=== PATIENT | female | born 1990 | race Caucasian/White ===

== ENCOUNTER 2020-05-14 06:07 | Inpatient (IN) ==
[2020-05-14] MEDS ORDERED: TRANEXAMIC ACID 1,000 MG/10 ML VIAL ONE (06:17)
[2020-05-14] MEDS ORDERED: miSOPROStoL 200 MCG TABLET ONE (06:17)
[2020-05-14] MEDS ORDERED: CARBOPROST TROMETHAMINE 250 MCG/ML AMP IM ONE (06:18)
[2020-05-14] MEDS ORDERED: METHYLERGONOVINE 0.2 MG/1 ML AMP ONE (06:18)
[2020-05-14] MEDS ORDERED: OXYTOCIN/LR 20 UNIT/1,000 ML BAG IV ONE ×3 (06:18→07:16)
[2020-05-14] MEDS ORDERED: MEPERIDINE 50 MG/1 ML VIAL ONE (06:19)
[2020-05-14] MEDS ORDERED: LIDOCAINE 1% 50 ML VIAL ONE (06:19)
[2020-05-14] MEDS ORDERED: SODIUM CHLORIDE 0.9% 0 ML IV ONE (06:19)
[2020-05-14] MEDS ORDERED: BUTORPHANOL 1 MG/ML VIAL IV PRN (06:30)
[2020-05-14] MEDS ORDERED: BUTORPHANOL 2 MG/ML VIAL IV PRN (06:30)
[2020-05-14] MEDS ORDERED: OXYTOCIN/LR 20 UNIT/1,000 ML BAG IV PRN (06:30)
[2020-05-14] MEDS ORDERED: ONDANSETRON 4 MG/2 ML VIAL IV PRN ×2 (06:30→07:16)
[2020-05-14] MEDS ORDERED: MEPERIDINE 50 MG/1 ML VIAL IV ONE (06:30)
[2020-05-14] MEDS ORDERED: LACTATED RINGERS 1,000 ML IV SCH (06:30)
[2020-05-14] MEDS ORDERED: MEASLES/MUMPS/RUBELLA VACCINE 0.5 ML VIAL SUBCUT ONE (07:16)
[2020-05-14] MEDS ORDERED: oxyCODONE/ACETAMINOPHEN 5-325 MG TABLET PO PRN ×2 (07:16)
[2020-05-14] MEDS ORDERED: BENZOCAINE 20%/MENTHOL 0.5% SPRAY 56 GM CAN TOP PRN (07:16)
[2020-05-14] MEDS ORDERED: IBUPROFEN 800 MG TABLET PO PRN (07:16)
[2020-05-14] MEDS ORDERED: ACETAMINOPHEN 325 MG TABLET PO PRN (07:16)
[2020-05-14] MEDS ORDERED: RHO(D) IMMUNE GLOBULIN 300 MCG SYRINGE IM ONE (07:16)
[2020-05-14] MEDS ORDERED: HYDROCORTISONE 2.5% RECTAL CREAM 30 GM TUBE TOP PRN (07:16)
[2020-05-14] MEDS ORDERED: LANOLIN 50% CREAM 0.3 OZ TUBE TOP PRN (07:16)
[2020-05-14] MEDS ORDERED: WITCH HAZEL PADS 100/JAR TOP PRN (07:16)
[2020-05-14] MEDS ORDERED: DIPH/TET/ACEL PERT BOOSTER VACCINE 0.5 ML VIAL IM ONE (07:16)
[2020-05-14] MEDS ORDERED: BISACODYL 10 MG SUPP RECTAL PRN (07:16)
[2020-05-14 07:17] LABS: Cord Arterial Blood HCO3 23.1 MMOL/L; Cord Venous Blood HCO3 24.3 MMOL/L; Cord Venous Blood PCO2 41.9 MMHG
[2020-05-14 07:43] LABS: Amorphous Crystals,Urine Occasional /HPF (Few); Bacteria,Urine Occasional /HPF (Few); Bilirubin,Urine Negative (Negative); Blood, Urine Moderate mg/dL (Negative); Glucose,Urine (UA) Negative (Negative); Ketones,Urine Negative (Negative); Nitrite,Urine Negative (Negative); Protein,Urine 30 MG/DL; RBC,Urine 2 /HPF (0-4); Squamous Epithelial Cell,Urine Occasional /HPF (0-10); Urine Appearance CLOUDY (Clear); Urine Color Yellow (Yellow); Urine Specific Gravity 1.008 (1.001-1.035); Urine Urobilinogen < 2.0 EU/DL (0.2-1.0); WBC,Urine 4 /HPF (0-6)
[2020-05-14 08:21] LABS: Basophils % 0.1 % (0.0-0.8); Eosinophils # 0.1 10*3/uL (0.0-0.87); Eosinophils % 0.3 % (0.00-10.9); Hemoglobin 11.3 GM/DL (12.0-16.0); Immature Granulocytes % 1.6 %; Immature Granulocytes Absolute 0.27 #; Lymphocytes # 1.3 10*3/uL (1.4-4.0); Lymphocytes % 7.5 % (21.3-54.2); Mean Corpuscular HGB Conc 33.2 GM/DL (32-36); Mean Corpuscular Volume 88.5 FL (87-102); Mean Platelet Volume 9.2 FL (9.6-12.0); Monocytes % 5.6 % (1.7-12.7); Neutrophils % 84.9 % (38.7-73.9); Platelet Count 337 T/CUMM (130-400); Red Blood Count 3.84 MC/CUMM (3.8-5.5); Red Cell Distribution Width 14.1 % (9.3-17.3); White Blood Count 16.6 T/CUMM (4-12)
[2020-05-14 08:44] LABS: Alanine Aminotransferase 14 U/L (13-56); Albumin 2.2 G/DL (3.4-5.0); Alkaline Phosphatase 109 U/L (45-117); Aspartate Amino Transferase 21 U/L (0-37); Bilirubin,Total < 0.39 MG/DL (0.2-1.0); Blood Urea Nitrogen 10 MG/DL (7-18); Calcium 9.3 MG/DL (8.5-10.1); Carbon Dioxide 24 MMOL/L (21-32); Estimated Glom Filtration Rate 110 ML/MIN; Glucose 113 MG/DL (74-106); Osmolality,Calculated 274.7 MOS/KG (273-304); Potassium 3.9 MMOL/L (3.5-5.1); Sodium 138 MMOL/L (136-145); Total Protein 6.3 G/DL (6.4-8.3)
[2020-05-14 09:23] LABS: Barbiturates Screen,Urine Negative (Negative); Benzodiazepines Screen,Urine Negative (Negative); Cannabinoid Screen,Urine Negative (Negative); Opiate Screen,Urine Negative (Negative); Phencyclidine Screen,Urine Negative (Negative)
[2020-05-14] MEDS: DOCUSATE SODIUM 100 MG CAPSULE PO SCH (21:44)
[2020-05-15 05:47] LABS: Basophils % 0.2 % (0.0-0.8); Eosinophils # 0.2 10*3/uL (0.0-0.87); Eosinophils % 1.4 % (0.00-10.9); Hematocrit 32.4 VOL% (35.7-47.0); Hemoglobin 10.5 GM/DL (12.0-16.0); Immature Granulocytes % 1.1 %; Immature Granulocytes Absolute 0.16 #; Lymphocytes # 2.6 10*3/uL (1.4-4.0); Lymphocytes % 18.5 % (21.3-54.2); Mean Corpuscular HGB Conc 32.4 GM/DL (32-36); Mean Corpuscular Volume 89.8 FL (87-102); Mean Platelet Volume 9.4 FL (9.6-12.0); Monocytes % 7.8 % (1.7-12.7); Platelet Count 304 T/CUMM (130-400); Red Blood Count 3.61 MC/CUMM (3.8-5.5); Red Cell Distribution Width 14.4 % (9.3-17.3)
[2020-05-15] MEDS: DOCUSATE SODIUM 100 MG CAPSULE PO SCH ×2 (08:23→21:30)
[2020-05-16] MEDS: DOCUSATE SODIUM 100 MG CAPSULE PO SCH (08:46)
[2020-05-16 11:31] VITALS: BP 116/77
== END 2020-05-16 12:20 | disposition home or self-care (01) | DRG 807 ==
LOC: N.LDOUT 06:07 → N.LD 06:09 → N.OB 10:34
PROVIDERS: ADMIT Specialist; ATTEND Specialist

== ENCOUNTER 2022-08-08 04:03 | Inpatient (IN) ==
[2022-08-08] MEDS ORDERED: METHYLERGONOVINE 0.2 MG/1 ML AMP IM PRN (04:37)
[2022-08-08] MEDS ORDERED: BUTORPHANOL 2 MG/ML VIAL IV PRN (04:37)
[2022-08-08] MEDS ORDERED: ONDANSETRON 4 MG/2 ML VIAL IV PRN (04:37)
[2022-08-08] MEDS ORDERED: MEPERIDINE 50 MG/1 ML VIAL IV PRN (04:37)
[2022-08-08] MEDS ORDERED: CARBOPROST TROMETHAMINE 250 MCG/ML AMP IM PRN (04:37)
[2022-08-08] MEDS ORDERED: TRANEXAMIC ACID 1,000 MG in SODIUM CHLORIDE 0.9% 100 ML IV PRN (04:37)
[2022-08-08] MEDS ORDERED: OXYTOCIN/LR 20 UNIT/1,000 ML BAG IV ONE ×2 (04:37→10:15)
[2022-08-08] MEDS ORDERED: miSOPROStoL 200 MCG TABLET RECTAL PRN (04:37)
[2022-08-08 04:53] LABS: Bacteria,Urine Occasional /HPF (Few); Bilirubin,Urine Negative (Negative); Blood, Urine Moderate mg/dL (Negative); Glucose,Urine (UA) Negative (Negative); Ketones,Urine Negative (Negative); Mucus,Urine Occasional /LPF (Occasional); Nitrite,Urine Negative (Negative); Protein,Urine Negative (Negative); RBC,Urine 1 /HPF (0-4); Squamous Epithelial Cell,Urine Occasional /HPF (0-10); Urine Appearance Clear (Clear); Urine Color Yellow (Yellow); Urine Specific Gravity 1.015 (1.001-1.035); Urine Urobilinogen 0.2 eU/dL (<2.0)
[2022-08-08] MEDS ORDERED: LACTATED RINGERS 1,000 ML IV SCH (05:00)
[2022-08-08 05:46] LABS: Alanine Aminotransferase 21 U/L (13-56); Albumin 2.6 G/DL (3.4-5.0); Alkaline Phosphatase 104 U/L (45-117); Aspartate Amino Transferase 17 U/L (0-37); Bilirubin,Total < 0.39 MG/DL (0.20-1.00); Blood Urea Nitrogen 12 MG/DL (7-18); Calcium 9.2 MG/DL (8.5-10.1); Carbon Dioxide 20 MMOL/L (21-32); Chloride 106 MMOL/L (98-107); Glucose 102 MG/DL (74-106); Potassium 4.1 MMOL/L (3.5-5.1); Sodium 136 MMOL/L (136-145); Total Protein 7.1 G/DL (6.4-8.2)
[2022-08-08 06:02] LABS: Basophils % 0.2 % (0.0-0.8); Eosinophils # 0.1 10*3/uL (0.0-0.87); Eosinophils % 0.7 % (0.00-10.9); Hematocrit 39.9 VOL% (35.7-47.0); Immature Granulocytes % 1.2 %; Immature Granulocytes Absolute 0.19 #; Lymphocytes # 2.2 10*3/uL (1.4-4.0); Lymphocytes % 13.6 % (21.3-54.2); Mean Corpuscular HGB Conc 32.6 GM/DL (32-36); Mean Corpuscular Volume 94.3 FL (87-102); Mean Platelet Volume 8.9 FL (9.6-12.0); Monocytes # 1.1 10*3/uL (0.11-0.8); Monocytes % 7.1 % (1.7-12.7); Neutrophils % 77.2 % (38.7-73.9); Platelet Count 290 T/CUMM (130-400); Red Blood Count 4.23 MC/CUMM (3.8-5.5); Red Cell Distribution Width 13.8 % (9.3-17.3); White Blood Count 16.08 T/CUMM (4-12)
[2022-08-08 06:15] LABS: Cord Venous Blood HCO3 25.5 MMOL/L; Cord Venous Blood PCO2 41.3 MMHG; Cord Venous Blood PO2 37.1
[2022-08-08] MEDS ORDERED: MEASLES/MUMPS/RUBELLA VACCINE 0.5 ML VIAL SUBCUT ONE (06:27)
[2022-08-08] MEDS ORDERED: BENZOCAINE 20%/MENTHOL 0.5% SPRAY 56 GM CAN TOP PRN (06:27)
[2022-08-08] MEDS ORDERED: HYDROCORTISONE 2.5% RECTAL CREAM 30 GM TUBE TOP PRN (06:27)
[2022-08-08] MEDS ORDERED: RHO(D) IMMUNE GLOBULIN 300 MCG SYRINGE IM ONE (06:27)
[2022-08-08] MEDS ORDERED: LANOLIN 50% CREAM 0.3 OZ TUBE TOP PRN (06:27)
[2022-08-08] MEDS ORDERED: WITCH HAZEL PADS 100/JAR TOP PRN (06:27)
[2022-08-08] MEDS ORDERED: BISACODYL 10 MG SUPP RECTAL PRN (06:27)
[2022-08-08] MEDS ORDERED: DIPH/TET/ACEL PERT BOOSTER VACCINE 0.5 ML VIAL IM ONE (06:27)
[2022-08-08] MEDS ORDERED: oxyCODONE/ACETAMINOPHEN 5-325 MG TABLET PO PRN ×2 (06:27)
[2022-08-08] MEDS ORDERED: ACETAMINOPHEN 325 MG TABLET PO PRN (06:27)
[2022-08-08] MEDS: DOCUSATE SODIUM 100 MG CAPSULE PO SCH ×2 (13:49→21:16)
[2022-08-08] MEDS: KETOROLAC 30 MG/1 ML VIAL IV SCH ×3 (13:49→20:12)
[2022-08-08] MEDS: MULTIVITAMIN (PRENATAL) TABLET PO SCH (13:49)
[2022-08-09 06:15] LABS: Basophils % 0.2 % (0.0-0.8); Eosinophils # 0.2 10*3/uL (0.0-0.87); Eosinophils % 1.7 % (0.00-10.9); Hematocrit 32.4 VOL% (35.7-47.0); Hemoglobin 10.5 GM/DL (12.0-16.0); Immature Granulocytes % 1.1 %; Immature Granulocytes Absolute 0.15 #; Lymphocytes # 2.8 10*3/uL (1.4-4.0); Lymphocytes % 20.2 % (21.3-54.2); Mean Corpuscular HGB Conc 32.4 GM/DL (32-36); Mean Corpuscular Volume 94.2 FL (87-102); Monocytes # 0.9 10*3/uL (0.11-0.8); Monocytes % 6.8 % (1.7-12.7); Platelet Count 238 T/CUMM (130-400); Red Blood Count 3.44 MC/CUMM (3.8-5.5); White Blood Count 13.61 T/CUMM (4-12)
[2022-08-09] MEDS: IBUPROFEN 800 MG TABLET PO SCH ×2 (08:01→14:02)
[2022-08-09] MEDS: DOCUSATE SODIUM 100 MG CAPSULE PO SCH ×2 (09:56→20:33)
[2022-08-09] MEDS: MULTIVITAMIN (PRENATAL) TABLET PO SCH (09:56)
[2022-08-09 11:35] LABS: Basophils % 0.2 % (0.0-0.8); Eosinophils # 0.2 10*3/uL (0.0-0.87); Eosinophils % 1.7 % (0.00-10.9); Hemoglobin 11.3 GM/DL (12.0-16.0); Immature Granulocytes % 1.2 %; Immature Granulocytes Absolute 0.15 #; Lymphocytes # 2.4 10*3/uL (1.4-4.0); Lymphocytes % 18.8 % (21.3-54.2); Mean Corpuscular HGB Conc 33.2 GM/DL (32-36); Mean Corpuscular Volume 94.2 FL (87-102); Mean Platelet Volume 9.1 FL (9.6-12.0); Monocytes # 0.8 10*3/uL (0.11-0.8); Neutrophils % 72.1 % (38.7-73.9); Platelet Count 271 T/CUMM (130-400); Red Blood Count 3.61 MC/CUMM (3.8-5.5)
[2022-08-10] MEDS: MULTIVITAMIN (PRENATAL) TABLET PO SCH (09:21)
[2022-08-10] MEDS: DOCUSATE SODIUM 100 MG CAPSULE PO SCH (09:22)
[2022-08-10 11:59] VITALS: BP 109/63
== END 2022-08-10 12:10 | disposition home or self-care (01) | DRG 807 ==
LOC: N.LD → OBSVTOIN 04:03 → N.LD 04:14 → N.OB 08:44
PROVIDERS: ADMIT Specialist; ATTEND Specialist